=== PATIENT | female | born 1940 | race Caucasian/White ===

== ENCOUNTER → 2017-12-01 | Outpatient (CLI) | payer OTHER | LOC: SLEEPLAB 14:04 | DX: G47.33 Obstructive sleep apnea (adult) (pediatric) (principal) ==

== ENCOUNTER → 2020-03-25 | Outpatient (CLI) | payer OTHER | LOC: RAD 12:40 | DX: M47.814 Spondylosis without myelopathy or radiculopathy, thoracic region (principal); J45.40 Moderate persistent asthma, uncomplicated ==